=== PATIENT | male | born 1960 | race Caucasian/White ===

== ENCOUNTER → 2018-03-24 | Outpatient (REF) | payer MEDICARE, MEDICAID | LOC: M LAB REF 15:24 | DX: L85.8 Other specified epidermal thickening (principal); I87.312 Chronic venous hypertension (idiopathic) with ulcer of left lower extremity (principal) | CPT/HCPCS: 88305 ==

== ENCOUNTER → 2018-04-07 | Outpatient (CLI) | payer MEDICARE, MEDICAID | LOC: M RAD 11:31 | DX: I87.312 Chronic venous hypertension (idiopathic) with ulcer of left lower extremity (principal); R93.8 Abnormal findings on diagnostic imaging of other specified body structures | CPT/HCPCS: 93971 ==

== ENCOUNTER 2022-09-02 06:14 | Day surgery (SDC) | payer MEDICARE, MEDICAID ==
[~2022-09-02] VITALS: Ht 185.4 cm; Wt 136.1 kg
[~2022-09-02 06:14] MED LIST: ALLO300T2 PO; AMLO1TAB24 PO; BISO5TAB14 PO; BSS IRRIG/VANCO(10MG)/TOBRA(5MG)/EPINEPH(1:1000-0.5CC)500ML BAG-ORONLY IR ONE; CHLO25TA GT; ECOT81TA5 PO; HYDR12CA PO; JARD1TAB3 PO; LIDOCAINE 3.5 % 1ML OPHTH TOPICAL GEL OU ONE; MAGNSOL2 PO; METF10004 PO; METO50TA7 PO; NEUR300C PO; OFLOXACIN 0.3 % (OCUFLOX) OPTH SOL 5ML OD ONE; PANT40TA29 PO; PHENYLEPHRINE HCL 10 % OPHTH. SOL 5ML OD PRN; XARE20TA PO
[2022-09-02] MEDS: TROPICAMIDE 1% OPHTH SOLN 2ML OD SCH ×2 (06:42→07:11)
[2022-09-02] MEDS: CYCLOPENTOLATE 1% OPHTH SOLN 2 ML BTL OD SCH ×2 (06:42→07:11)
[2022-09-02] MEDS: PHENYLEPHRINE 2.5% OPHTH SOL 2ML OD SCH ×2 (06:42→07:11)
[2022-09-02] MEDS ORDERED: CEFUROXIME 1MG/0.1ML INTRACAMERAL INJ As Ordered ONE (06:48)
[2022-09-02] MEDS ORDERED: LIDOCAINE 1% SDV 5ML VIAL As Ordered ONE (06:51)
[2022-09-02] MEDS ORDERED: fentaNYL 100 MCG/2 ML INJECTION As Ordered ONE (08:06)
[2022-09-02] MEDS ORDERED: MIDAZOLAM INJ 2MG/2ML VIAL (J2250 PER 1MG) As Ordered ONE (08:06)
[2022-09-02 08:20] VITALS: BP 119/71
== END 2022-09-02 08:32 | disposition home or self-care (01) ==
LOC: M SDC 06:14
PROVIDERS: ATTEND Ophthalmology
DX: H25.11 Age-related nuclear cataract, right eye (principal); I10 Essential (primary) hypertension; E11.9 Type 2 diabetes mellitus without complications; M10.9 Gout, unspecified; Z79.01 Long term (current) use of anticoagulants; Z98.61 Coronary angioplasty status; I48.91 Unspecified atrial fibrillation; I25.2 Old myocardial infarction; Z79.899 Other long term (current) drug therapy; Z79.84 Long term (current) use of oral hypoglycemic drugs; F17.210 Nicotine dependence, cigarettes, uncomplicated
CPT/HCPCS: 66984; J0697; J2250; J3010; V2632

== ENCOUNTER → 2025-08-02 | Outpatient (CLI) | payer MEDICARE, MEDICAID ==
[~2025-08-02] MED LIST changes: +ATOR40TA75; -BSS IRRIG/VANCO(10MG)/TOBRA(5MG)/EPINEPH(1:1000-0.5CC)500ML BAG-ORONLY IR ONE; +HYDR12.510 PO; -HYDR12CA PO; -LIDOCAINE 3.5 % 1ML OPHTH TOPICAL GEL OU ONE; +LOSA25TA13; -OFLOXACIN 0.3 % (OCUFLOX) OPTH SOL 5ML OD ONE; -PHENYLEPHRINE HCL 10 % OPHTH. SOL 5ML OD PRN; +TIRZ2.5P
[2025-08-02 08:55] VITALS: TEMP 97.1
[2025-08-02 09:27] LABS: BASO # 0.1 10^3/uL (0.0-0.2); BASO % 1.0 % (0.0-1.0); EOS # 0.2 10^3/uL (0.0-0.5); EOS % 2.4 % (0.0-3.0); LYMPH # 1.6 10^3/uL (1.5-5.0); LYMPH % 25.2 % (24.0-44.0); MONO # 0.6 10^3/uL (0.0-0.8); MONO % 10.0 % (2.0-8.0); NEUTROPHILS # 3.8 10^3/uL (1.5-8.5); NEUTROPHILS % 61.1 % (36.0-66.0); PLATELET COUNT, AUTOMATED 230 10^3/uL (150-450)
[2025-08-02 09:35] VITALS: BP 177/110; O2SAT 95
[2025-08-02] MEDS: LIDOCAINE 1% MDV 20 ML VIAL SC STA (09:57)
== END ==
LOC: M IRPRO 08:46
DX: D47.2 Monoclonal gammopathy (principal)

== ENCOUNTER → 2025-08-29 | Outpatient (CLI) | payer MEDICARE, OTHER | LOC: M PLARAD 11:14 | PROVIDERS: ATTEND Student in an Organized Health Care Education/Training Program | DX: D47.Z9 Other specified neoplasms of uncertain behavior of lymphoid, hematopoietic and related tissue (principal); K76.0 Fatty (change of) liver, not elsewhere classified; K42.9 Umbilical hernia without obstruction or gangrene | CPT/HCPCS: 78816; A9552 ==